=== PATIENT | female | born 1940 | race Caucasian/White ===

== ENCOUNTER 2016-10-25 17:45 | Emergency (ER) | payer MEDICARE ==
[2016-10-25 18:07] VITALS: BP 166/81
--- NOTE | 2016-10-25 18:36 | ERNOTE ---
ENT HPI Date of Service: 10/25/16 Presenting Symptoms: other Time Seen by Provider: 10/25/16 17:58 Source: patient, family Exam Limitations: no limitations - Immun/Allergies/Home Medications Immunizations: IMMUNIZATION HX Immunizations Up to Date Yes History of Influenza Vaccine Yes Hx Pneumococcal Vaccination Yes Allergies/Adverse Reactions: Allergies Allergy/AdvReac Type Severity Reaction Status Date / Time No Known Allergies Allergy Verified 10/25/16 18:07 Home Medications: HOME MEDICATIONS Cyanocobalamin [Vitamin B-12] 1,000 mcg PO DAILY 11/09/15 [Last Taken Unknown] Levothyroxine Sodium [Synthroid] 125 mcg PO DAILY 11/09/15 [Last Taken Unknown] Sertraline HCl [Zoloft] 200 mg PO HS 11/09/15 [Last Taken Unknown] Turmeric Root Extract [Turmeric] 500 mg PO DAILY 11/09/15 [Last Taken Unknown] Cholecalciferol [Vitamin D] 1,000 unit PO DAILY 07/23/16 [Last Taken Unknown] Donepezil HCl [Aricept] 5 mg PO HS 07/23/16 [Last Taken Unknown] Ketoconazole [Nizoral Cream] 1 appl TP DAILY 07/23/16 [Last Taken Unknown] Mometasone Furoate 1 applic TP DAILY 07/23/16 [Last Taken Unknown] Gabapentin 300 mg PO QID #120 capsule 10/25/16 [Last Taken Unknown] Pravastatin Sodium [Pravachol] 20 mg PO Q2D #15 tablet 10/25/16 [Last Taken Unknown] carBAMazepine [Tegretol] 0.5 tab PO QID #60 tablet 10/25/16 [Last Taken Unknown] - History of Present Illness Narrative: Chronic left trigeminal neuralgia. Worse this week. Excruciating today. Discussed at length. Also out of pravastatin. . Severity: Present: moderate, severe ENT Location: Present: other Prearrival Treatment: Present: over the counter meds, prescription meds Modifying Factors - Improves: Reports: other - medications Modifying Factors - Worsens: Reports: activity Associated Symptoms - ENT: Reports: denies symptoms Review of Systems - Review of Systems Constitutional: Present: no symptoms reported EYE: Present: no symptoms reported ENT: Present: no symptoms reported Respiratory: Present: no symptoms reported Cardiology: Present: no symptoms reported Gastrointestinal/Abdominal: Present: no symptoms reported Genitourinary: Present: no symptoms reported Musculoskeletal: Present: no symptoms reported Skin: Present: no symptoms reported Neurological: Present: See HPI Endocrine: Present: no symptoms reported Hematologic/Lymphatic: Present: no symptoms reported Psych: Present: no symptoms reported All Other Systems: All systems neg except as marked - Patient's Past Medical History Patient History - Medical: Arthritis, Chronic Pain, Hypothyroidism Patient History - Cancer: No Hx of Cancer Patient History - Surgical Procedures: Total Knee Replacement, T & A - Family History Father Family History - Medical: , Dementia Family History - Cardiac/Respiratory: Coronary Heart Disease Family History - Cancer: No Hx of cancer Mother Family History - Medical: , Alzheimer's Disease, Arthritis Family History - Cardiac/Respiratory: No pertinent hx Family History - Cancer: No Hx of cancer - Social History Living Situations: alone Does anyone smoke in the home?: No Smoking Status: Never smoker Have you smoked in the past 12 months: No Alcohol Use: none Drug Use: none Physical Exam - Physical Exam General Appearance: Present: wd/wn, alert, no apparent distress Eye Exam: Normal inspection: bilateral, PERRL: bilateral, EOMI: bilateral Ears, Nose, Throat: Present: normal ENT inspection, hearing grossly normal Neck: Present: normal inspection, nontender Respiratory: Present: no respiratory distress, normal breath sounds Cardiovascular/Chest: Present: regular rate, rhythm, no murmur Extremity Exam: Present: no edema Neurological Exam: Present: alert, oriented, normal mood/affect, no motor/ sensory deficits Skin Exam: Present: normal color, warm/dry Lymphatic Exam: Present: no adenopathy ED Progress - Vital Signs Patient's Vital Signs:: I have reviewed the patient's vital signs. Vital Signs: Vital Signs 10/25/16 18:03 Temperature 35.9 C L Pulse Rate 80 Respiratory 14 Rate Blood Pressure 166/81 O2 Sat by Pulse 98 Oximetry - Progress/Reassessment Chief Complaint: Dental Problem Departure Clinical Impression: Trigeminal neuralgia of left side of face Hyperlipidemia Qualifiers: Hyperlipidemia type: unspecified Qualified Code(s): E78.5 - Hyperlipidemia, unspecified - Departure Disposition: Home self-care Condition: Good Instructions: Trigeminal Neuralgia Additional Instructions: Follow up with your neurologist this week. Referrals: Kade Tristan MD [Primary Care Provider] - Prescriptions: Gabapentin 300 mg PO QID #120 capsule Pravastatin Sodium [Pravachol] 20 mg PO Q2D #15 tablet carBAMazepine [Tegretol] 0.5 tab PO QID #60 tablet
== END 2016-10-25 18:36 | disposition home or self-care (01) ==
LOC: ER 17:45
DX: E78.5 Hyperlipidemia, unspecified (principal); G50.0 Trigeminal neuralgia; Z96.659 Presence of unspecified artificial knee joint

== ENCOUNTER 2016-11-07 18:07 | Observation (INO) | payer MEDICARE ==
--- NOTE | 2016-11-07 18:28 | ERNOTE ---
Neuro HPI ER Record Date of Service: 11/07/16 Presenting Symptoms: weakness, confusion, difficulty walking, falling Time Seen by Provider: 11/07/16 18:13 Source: patient, family, EMS notes reviewed Immunizations: IMMUNIZATION HX Immunizations Up to Date Yes History of Influenza Vaccine Yes Hx Pneumococcal Vaccination Yes Allergies/Adverse Reactions: Allergies Allergy/AdvReac Type Severity Reaction Status Date / Time No Known Allergies Allergy Verified 10/25/16 18:07 Home Medications: HOME MEDICATIONS Amitriptyline HCl [Elavil] 10 mg PO HS 11/07/16 [Last Taken Unknown] Atorvastatin Calcium 40 mg PO HS 11/07/16 [Last Taken Unknown] Donepezil HCl [Aricept] 5 mg PO HS 11/07/16 [Last Taken Unknown] Gabapentin [Neurontin] 600 mg PO TID 11/07/16 [Last Taken Unknown] Meloxicam 7.5 mg PO DAILY 11/07/16 [Last Taken Unknown] Pravastatin Sodium [Pravachol] 20 mg PO Q48H 11/07/16 [Last Taken Unknown] Sertraline HCl [Zoloft] 200 mg PO HS 11/07/16 [Last Taken Unknown] carBAMazepine [Tegretol Xr] 200 mg PO TID 11/07/16 [Last Taken Unknown] clonazePAM [Klonopin] 0.5 mg PO BID 11/07/16 [Last Taken Unknown] - History of Present Illness Narrative: Patient presents with weakness that's been going on for the past 2-3 days. She' s been weak and lower legs she's been falling quite a bit yesterday and today. Although she denies any loss of consciousness or denies hitting her head. Denies any chest pain abdominal pain shortness of breath no nausea or vomiting or diarrhea. She has had a recent change in her medications her carbamazepine has increased, dose being doubled. And her gabapentin also has been increased. Date (Duration): 11/19/16 Onset: gradual onset - Character of Deficits New weakness: Present: RLE, LLE, general (diffuse) Additional Deficits: Present: decrease ability to walk, weakness, off balance Baseline Cognition: Present: alert but disoriented to time Baseline Gait: Present: walks w/o assistance Associated Symptoms: Reports: altered mental status, confused, trouble thinking. Denies: fever/chills, sweating, chest pain, neck/back pain, headache , fainting, seizure Review of Systems - Review of Systems Constitutional: Present: weakness, decreased activity level. Absent: fever, chills EYE: Absent: vision changes ENT: Absent: sore throat Respiratory: Absent: shortness of breath Cardiology: Absent: chest pain, palpitations, syncope Gastrointestinal/Abdominal: Absent: nausea, vomiting, diarrhea, abdominal pain Genitourinary: Absent: decreased urinary output Neurological: Present: dizziness/light-headedness, weakness. Absent: headache, numbness, tingling All Other Systems: All systems neg except as marked - Patient's Past Medical History Patient History - Medical: Arthritis, Chronic Pain, Hypothyroidism Patient History - Cancer: No Hx of Cancer Patient History - Surgical Procedures: Total Knee Replacement, T & A - Family History Father Family History - Medical: , Dementia Family History - Cardiac/Respiratory: Coronary Heart Disease Family History - Cancer: No Hx of cancer Mother Family History - Medical: , Alzheimer's Disease, Arthritis Family History - Cardiac/Respiratory: No pertinent hx Family History - Cancer: No Hx of cancer - Social History Living Situations: alone Does anyone smoke in the home?: No Smoking Status: Never smoker Alcohol Use: none Drug Use: none Physical Exam - Physical Exam General Appearance: Present: wd/wn, alert, no apparent distress Eye Exam: Normal inspection: bilateral, PERRL: bilateral, EOMI: bilateral Ears, Nose, Throat: Present: normal ENT inspection, hearing grossly normal, normal pharynx Neck: Present: normal inspection, nontender Respiratory: Present: no respiratory distress, normal breath sounds, no accessory muscle use, chest nontender, lungs clear Cardiovascular/Chest: Present: regular rate, rhythm, no murmur, normal peripheral pulses Gastrointestinal/Abdominal: Present: normal bowel sounds, nontender, nondistended, soft, no organomegaly Back Exam: Present: normal inspection, normal range of motion, no CVA tenderness , no vertebral tenderness Extremity Exam: Present: normal inspection, non-tender, no edema, normal range of motion Neurological Exam: Present: alert, normal mood/affect, no motor/sensory deficits , disoriented to time Skin Exam: Present: normal color, warm/dry Lymphatic Exam: Present: no adenopathy ED Progress - Results and Orders Patient's Lab Results:: I have reviewed the patient's lab results. - Vital Signs Patient's Vital Signs:: I have reviewed the patient's vital signs. Vital Signs: Vital Signs 11/07/16 11/07/16 18:10 18:15 Temperature 36.4 C L Pulse Rate 67 68 Respiratory 18 Rate Blood Pressure 154/62 O2 Sat by Pulse 97 Oximetry - EKG EKG: NSR, RBBB, nonspecific ST T wave changes EKG read: Interp. by me EKG Comments: EKG shows an incomplete right bundle branch block heart rate 64 sinus rhythm. - Progress/Reassessment Chief Complaint: Altered Mental Status Progress:: Unchanged - be admitted to the hospitalist under care of Joyce Anderson, for observation. - Transfer of Care Expected Disposition: Admit - still quite weak upon ambulating I will go ahead and admit her to the hospital at least for observation. Family also agreed to this Departure Clinical Impression: Generalized weakness, Carbamazepine toxicity Lower extremity weakness Qualifiers: Laterality: bilateral Qualified Code(s): R29.898 - Other symptoms and signs involving the musculoskeletal system - Departure Disposition: [facility] Condition: Good
[2016-11-07] MEDS ORDERED: NORMAL SALINE 1,000 ML IV ONE (18:29)
[2016-11-07 19:05] LABS: Hematocrit 39.2 % (37.0-47.0); Hemoglobin 13.1 gm/dL (12.5-16.0); Mean Cell Volume 96.6 fl (78-100); Mean Corpuscular Hemoglobin 32.3 pg (27-31); Mean Corpuscular Hgb Conc 33.4 g/dl (32-36); Mean Platelet Volume 9.2 fl (6.0-9.5); Neutrophil % 55.7 % (42-75.0); Platelet Count 213 K/mm3 (150-450); Red Blood Count 4.06 M/mm3 (4.2-5.4); Red Cell Distribution Width 12.8 % (11.5-14.0); White Blood Count 5.4 K/mm3 (4.0-10.5)
[2016-11-07 19:24] LABS: ALT 24 U/L (19-67); AST 17 U/L (0-48); Albumin * 3.5 gm/dl (3.4-5.0); Alkaline Phosphatase * 95 U/L (50-170); Anion Gap 9.5 mmol/L (6.8-13.8); BUN/Creatinine Ratio 14.1 (9.0-21.6); Bilirubin, Total 0.3 mg/dL (0.0-1.1); Blood Urea Nitrogen 14 mg/dL (3-23); Ca. Corrected For Albumin 9.2 mg/dL (8.4-10.2); Calcium * 9.1 mg/dL (7.9-10.9); Carbamazepine 14.9 mcg/mL (4.0-12.0); Carbon Dioxide 31.4 mmol/L (24-32.6); Chloride 105 mmol/L (97-106); Glucose * 150 mg/dL (70-110); Potassium 3.9 mmol/L (3.4-4.6); Sodium 142 mmol/L (132-142); Total Protein 7.1 gm/dL (6.2-8.2); Troponin I Less than 0.017 ng/ml (0.00-0.10)
[2016-11-07 19:26] LABS: Prothrombin Time (Patient) 10.5 Seconds (9.4-11.4)
[2016-11-07 19:27] LABS: INR 1.01 INR (0.90-1.10); Partial Thrombolplastin Time 26.1 Seconds (24-32)
[2016-11-07 20:05] LABS: Urine Appearance Clear; Urine Bacteria None Seen; Urine Bilirubin Negative (NEGATIVE); Urine Blood Negative /ul (NEGATIVE); Urine Color Yellow; Urine Ketone Negative (NEGATIVE); Urine Nitrite Negative (NEGATIVE); Urine Protein Negative (NEGATIVE); Urine RBC None Seen /hpf (0-5); Urine Specific Gravity 1.015 SP.GR. (1.005-1.010); Urine Urobilinogen Normal (NORMAL); Urine WBC None Seen /hpf (0-5); Urine pH 6.5 pH (5.0-7.0)
--- NOTE | 2016-11-07 22:31 | HP ---
Chief Complaint - Chief Complaint Date of Service: 11/07/16 Time of Service: 21:49 Chief Complaint: "Weakness, Confusion,". Source of HPI- Pt; unreliable, Pt's daughters Holly & Janel, ER provider report. History of Present Illness: Ms. Ohara is a 76yr-old [place] pt of Dr. Kade Tristan with a PMH of: DM II, HLD , Psoriasis, Generalized Muscle Weakness & Trigeminal Neuralgia. Pt is not a reliable historian and information is mostly obtained from her two daughter at bedside. They report that for the last 2-3 days, they have noticed that the pt has been appearing weaker. She fell 2 days ago but they deny any injury to the head or any extremity, and no medical care was sought. Today, they noticed that she was even more weaker and appeared to be confused, and the symptoms forced them to bring her to the [facility] ER. In speaking to the pt, she states that her legs just felt weaker, but denies denies feeling dizzy or light headed. The family denies noting any slurry speech, facial drooping or one sided weakness. During the evaluation at the ED, the CXR, UA & Head CT obtained did not have any acute findings. The laboratory studies were unremarkable. However, the family & pt disclosed that she sought medical care in [facility] for intolerable pain from her Trigeminal neuralgia on 11/04/16. They state that her Gapapentin dose was increased from 300mg t.i.d to 600mg t.i.d, and the carbamazepine was increased from 100mg t.i.d to 200mg t.i.d. The Carbamazepine level obtained in ER was mildly elevated at 14.7. The pt will be admitted under observation status for AMS & remote telemetry monitoring. - Patient's Past Medical History Patient History - Medical: Arthritis, Chronic Pain, Diabetes Type 2, Dementia, Hypothyroidism - Trigeminal Neuralgia,Psoriasis, , Other Patient History - Cardiac/Respiratory: Hyperlipidemia Patient History - Cancer: No Hx of Cancer Patient History - Surgical Procedures: Cataracts, Hysterectomy, Total Knee Replacement - Both knees, 2000, Adenoidectomy,, T & A - Family History Father Family History - Medical: , Dementia Family History - Cardiac/Respiratory: Coronary Heart Disease Family History - Cancer: No Hx of cancer Mother Family History - Medical: , Alzheimer's Disease, Arthritis Family History - Cardiac/Respiratory: No pertinent hx Family History - Cancer: No Hx of cancer - Social History Living Situations: alone Does anyone smoke in the home?: No Smoking Status: Never smoker Have you smoked in the past 12 months: No Do you dip or chew tobacco: No Patient requests Smoking Cessation Consult: No Initiate information on Smoking Cessation: No Alcohol Use: none Drug Use: none Review Of Systems (GEN) - Review of Systems Generalized/Overall Review: Present: Weakness, Fatigue. Absent: Chills, Fever EENTM: Absent: Eye Pain, Blurred Vision, Throat Pain, Throat Swelling Respiratory: Absent: Cough, Shortness of Breath Cardiac: Absent: Chest Pain, Edema, Palpitations Abdominal: Absent: Nausea, Vomiting, Abdominal Pain, Constipation, Diarrhea, Melena Genitourinary: Absent: Burning, Itching, Urgency, Frequency, Hematuria Musculoskeletal: Present: Joint Pain - Lower Back, Other Neurological: Present: Headache, Anxiety, Depressed Skin: Present: Dryness, Lesions, Lumps Endocrine: Present: Intolerance to Cold. Absent: Intolerance to Heat, Increased Thirst Misc: All systems neg except as marked Allergies/Adverse Reactions: Allergies Allergy/AdvReac Type Severity Reaction Status Date / Time No Known Allergies Allergy Verified 10/25/16 18:07 Home Medications: HOME MEDICATIONS Amitriptyline HCl [Elavil] 10 mg PO HS 11/07/16 [Last Taken Unknown] Atorvastatin Calcium 40 mg PO HS 11/07/16 [Last Taken Unknown] Donepezil HCl [Aricept] 5 mg PO HS 11/07/16 [Last Taken Unknown] Gabapentin [Neurontin] 600 mg PO TID 11/07/16 [Last Taken Unknown] Meloxicam 7.5 mg PO DAILY 11/07/16 [Last Taken Unknown] Pravastatin Sodium [Pravachol] 20 mg PO Q48H 11/07/16 [Last Taken Unknown] Sertraline HCl [Zoloft] 200 mg PO HS 11/07/16 [Last Taken Unknown] carBAMazepine [Tegretol Xr] 200 mg PO TID 11/07/16 [Last Taken Unknown] clonazePAM [Klonopin] 0.5 mg PO BID 11/07/16 [Last Taken Unknown] Exam - Exam Vital Signs: Vital Signs - Last Taken Temp 36.6 C 11/07/16 20:43 Pulse 63 11/07/16 20:43 Resp 16 11/07/16 20:43 BP 159/72 11/07/16 20:43 Pulse Ox 95 11/07/16 20:43 Constitutional: Present: Alert, Oriented x3, No distress, Elderly ENT Exam: Present: normal ENT inspection, hearing grossly normal. Absent: nasal congestion, nasal drainage Eye Exam: bilateral eye: normal inspection, PERRL Neck: Present: full range of motion, normal inspection Back Exam: Present: normal inspection, no CVA tenderness Breasts: Present: Exam deferred Respiratory: Present: lungs clear, no accessory muscle use, No wheezing Cardiovascular/Chest: Present: normal peripheral pulses, regular rate, rhythm, no edema, no murmur Peripheral Pulses: carotid (R): 2+, carotid (L): 2+, dorsalis-pedis (R): 2+, dorsalis-pedis (L): 2+ Abdomen: Present: Normal bowel sounds, soft, nontender /Rectal: Present: Exam deferred Extremity: Present: normal inspection, no pedal edema. Absent: lower extremity edema Skin Exam: Present: warm/dry, no cyanosis Lymphatic: Present: no adenopathy Neurologic: Present: no motor/sensory deficits, alert, oriented x 3, abnormal gait, other - Muscle Strength on BUE 5/5 & 5/5 on /BLE. Absent: facial droop , dizzy/light-headedness Appearance: Present: appropriate appearance, appropriate insight, no memory impairment Eye contact: Present: cooperative, good eye contact, normal speech Thoughts: Present: normal thought pattern, no apparent hallucination Diagnostic Studies: Laboratory Results WBC 5.4 K/mm3 (4.0-10.5) 11/07/16 18:59 RBC 4.06 M/mm3 (4.2-5.4) L 11/07/16 18:59 Hgb 13.1 gm/dL (12.5-16.0) 11/07/16 18:59 Hct 39.2 % (37.0-47.0) 11/07/16 18:59 MCV 96.6 fl (78-100) 11/07/16 18:59 MCH 32.3 pg (27-31) H 11/07/16 18:59 MCHC 33.4 g/dl (32-36) 11/07/16 18:59 RDW 12.8 % (11.5-14.0) 11/07/16 18:59 Plt Count 213 K/mm3 (150-450) 11/07/16 18:59 MPV 9.2 fl (6.0-9.5) 11/07/16 18:59 Immature Gran % (Auto) 0.40 % (0.001-0.429) 11/07/16 18:59 Immature Gran # (Auto) 0.02 K/mm3 (0.000-0.0310) 11/07/16 18:59 Neutrophils % 55.7 % (42-75.0) 11/07/16 18:59 Lymphocytes % 32.3 % (20-51) 11/07/16 18:59 Monocytes % 6.0 % (0.0-9) 11/07/16 18:59 Eosinophils % 5.2 % (0.0-3.0) H 11/07/16 18:59 Basophils % 0.4 % (0.0-1.0) 11/07/16 18:59 Nucleated RBC % 0.0 k/mm3 (0-1) 11/07/16 18:59 Neutrophils # 3.0 K/mm3 (1.3-6.0) 11/07/16 18:59 Lymphocytes # 1.7 k/mm3 (1.5-3.5) 11/07/16 18:59 Monocytes # 0.3 k/mm3 (0.0-1.0) 11/07/16 18:59 Eosinophils # 0.3 k/mm3 (0.0-0.7) 11/07/16 18:59 Absolute Basophils 0.0 k/mm3 (0.0-0.1) 11/07/16 18:59 PT 10.5 Seconds (9.4-11.4) 11/07/16 18:59 INR (Anticoag Therapy) 1.01 INR (0.90-1.10) 11/07/16 18:59 PTT (Banks) 26.1 Seconds (24-32) 11/07/16 18:59 Sodium 142 mmol/L (132-142) 11/07/16 18:59 Plasma Sodium 143 mmol/L (130-142) H 11/07/16 18:59 Potassium 3.9 mmol/L (3.4-4.6) 11/07/16 18:59 Chloride 105 mmol/L (97-106) 11/07/16 18:59 Carbon Dioxide 31.4 mmol/L (24-32.6) 11/07/16 18:59 Anion Gap 9.5 mmol/L (6.8-13.8) 11/07/16 18:59 BUN 14 mg/dL (3-23) 11/07/16 18:59 Creatinine 0.99 mg/dL (0.4-1.4) 11/07/16 18:59 Est GFR (Non-Af Amer) 58 mL/min (60-130) L 11/07/16 18:59 BUN/Creatinine Ratio 14.1 (9.0-21.6) 11/07/16 18:59 Random Glucose 150 mg/dL (70-110) H 11/07/16 18:59 Calcium 9.1 mg/dL (7.9-10.9) 11/07/16 18:59 Calcium Adj for Albumin 9.2 mg/dL (8.4-10.2) 11/07/16 18:59 Total Bilirubin 0.3 mg/dL (0.0-1.1) 11/07/16 18:59 AST 17 U/L (0-48) 11/07/16 18:59 ALT 24 U/L (19-67) 11/07/16 18:59 Alkaline Phosphatase 95 U/L (50-170) 11/07/16 18:59 Troponin I Less than 0.017 ng/ml (0.00-0.10) 11/07/16 18:59 Total Protein 7.1 gm/dL (6.2-8.2) 11/07/16 18:59 Albumin 3.5 gm/dl (3.4-5.0) 11/07/16 18:59 Urine Color Yellow 11/07/16 19:30 Urine Appearance Clear 11/07/16 19:30 Urine pH 6.5 pH (5.0-7.0) 11/07/16 19:30 Ur Specific [place] 1.015 SP.GR. (1.005-1.010) 11/07/16 19:30 Urine Protein Negative mg/dL (NEGATIVE) 11/07/16 19:30 Urine Glucose (UA) Negative mg/dL (NEGATIVE) 11/07/16 19:30 Urine Ketones Negative mg/dL (NEGATIVE) 11/07/16 19:30 Urine Blood Negative /ul (NEGATIVE) 11/07/16 19:30 Urine Nitrate Negative (NEGATIVE) 11/07/16 19:30 Urine Bilirubin Negative mg/dl (NEGATIVE) 11/07/16 19:30 Urine Urobilinogen Normal EU/dl (NORMAL) 11/07/16 19:30 Ur Leukocyte Esterase Negative /ul (NEGATIVE) 11/07/16 19:30 Urine RBC None seen /hpf (0-5) 11/07/16 19:30 Urine WBC None seen /hpf (0-5) 11/07/16 19:30 Ur Epithelial Cells None seen /hpf (0-5) 11/07/16 19:30 Urine Bacteria None seen (NONE) 11/07/16 19:30 Urine Culture Comments No culture indicated 11/07/16 19:30 Carbamazepine 14.9 mcg/mL (4.0-12.0) H 11/07/16 18:59 Assessment/Plan - Assessment/Plan (1) Altered mental status Assessment: Ms. Ohara family reports pts having abnormal thought content, weakness & falls more worsened within the last 2-3 days. She is otherwise usually able to care for herself independently and able to operate the motor vehicle. They are unsure if she takes medication correctly as dementia was noted during one of the doctor's visit. Today in the ER, most of the medical work-up involving; CXR , UA & Hematology/electrolyte Labs did not have any abnormal findings to suggest systemic illness. No hypoxia or hypoglycemia noted. The Head CT did not have any findings of ischemic or hemorrhagic stroke. The carbamazepine level was slightly elevated at 14.9 which is not significant enough to cause neurological symptoms. However,it must be noted that the home dose was recently increased. Her gabapentin dose was recently increased too and the medication has been known to have neuromusculo/skeletal effects such as weakness , & dizziness. Given the negative findings on test results, I suspect that the AMS is drug related. Problem: Acute (2) Carbamazepine toxicity Assessment: Consider Adjusting the doses. Will hold the medication for now due to AMS. Problem: Acute (3) Generalized weakness Assessment: Nursing reports pt requiring a maximum assist of two to ambulate. Will involve PT evaluation. Problem: Acute (4) Trigeminal neuralgia Assessment: Hold Gabapentin & Carbamazepine for now- will let the attending decide on the doses. Problem: Chronic (5) Hyperlipidemia Assessment: Stable. Problem: Chronic (6) Diabetes mellitus Assessment: Stable Problem: Chronic
[2016-11-07] MEDS ORDERED: SIMVASTATIN 10 MG TABLET PO SCH (23:00)
[2016-11-08] MEDS: MELOXICAM 7.5 MG TABLET PO SCH (09:50)
--- NOTE | 2016-11-08 09:50 | PN ---
[id number] Narrative: Her last medication were before 4 pm yesterday. Subsequent ones were put on hold.She does says that when she went to [facility] it was the left side of his facethat bothering and along her upper teeth. She is still feeling weak and has difficulty of ambulating. Objective - Review of Systems Generalized/Overall Review: Reports: Weakness. Denies: Chills, Fever EENTM: Reports: Other - pain in upper lips and teeth area Respiratory: Denies: Cough, Shortness of Breath Cardiac: Denies: Chest Pain, Edema, Palpitations Abdominal: Denies: Nausea, Vomiting Genitourinary Symptoms: Denies: Urgency, Frequency Musculoskeletal Complaints: Reports: Joint Pain - Vitals Vitals: Last Vital Signs Temp 36.7 C 11/08/16 08:19 Pulse 66 11/08/16 08:19 Resp 18 11/08/16 08:19 BP 147/60 11/08/16 08:19 Pulse Ox 96 11/08/16 08:19 - Exam Constitutional: Present: Alert, Oriented x3, Cooperative ENT Exam: Present: other - positive tteth feelings, positive tendeerness when pressured Neck: Present: supple Breasts: Present: Exam deferred Respiratory: Present: decreased breath sounds, No rales, No wheezing Cardiovascular/Chest: Present: regular rate, rhythm, no JVD, no murmur Abdomen: Present: Normal bowel sounds, soft, nontender, nondistended Extremity: Present: no calf tenderness, pedal edema Neurologic: Present: hearing aid repair technician II-XII nml as tested, oriented x 3 Assessment/Plan - Problems/Diagnosis (1) Altered mental status Problem: Resolved Qualifiers: Altered mental status type: disorientation Qualified Code(s): R41.0 - Disorientation, unspecified Narrative: due to recent increase in medications. will restart her meds on her previous doses one at a time (2) Generalized weakness Problem: Acute Narrative: could be drug related or deconditioning. no PT for evaluation . for discharge tomorrow following PT eval and treatment. (3) Trigeminal neuralgia Problem: Chronic (4) Mild cognitive impairment Problem: Resolved (5) Diabetes mellitus Problem: Chronic Qualifiers: Diabetes mellitus complication status: with kidney complications (6) Tooth ache Problem: Acute Narrative: will need dental appointment on discharge. (7) Carbamazepine toxicity Problem: Acute Qualifiers: Encounter type: subsequent encounter Narrative: on hold
[2016-11-08] MEDS: GABAPENTIN 300 MG CAPSULE PO SCH ×2 (13:08→18:10)
[2016-11-08] MEDS ORDERED: SERTRALINE HCL 100 MG TABLET PO SCH (21:00)
[2016-11-08] MEDS ORDERED: DONEPEZIL HCL 10 MG TABLET PO SCH (21:00)
[2016-11-08] MEDS ORDERED: AMITRIPTYLINE HCL 10 MG TABLET PO SCH (21:00)
[2016-11-08] MEDS ORDERED: ATORVASTATIN CALCIUM 40 MG TABLET PO SCH (21:00)
[2016-11-09] MEDS: GABAPENTIN 300 MG CAPSULE PO SCH ×2 (01:13→10:36)
[2016-11-09] MEDS: MELOXICAM 7.5 MG TABLET PO SCH (09:56)
--- NOTE | 2016-11-09 10:46 | DS ---
(1) Altered mental status Problem: Resolved Qualifiers: Altered mental status type: disorientation Qualified Code(s): R41.0 - Disorientation, unspecified (2) Carbamazepine toxicity Problem: Acute Qualifiers: Encounter type: subsequent encounter (3) Mild cognitive impairment Problem: Resolved (4) Diabetes mellitus Problem: Chronic Qualifiers: Diabetes mellitus complication status: with kidney complications (5) Trigeminal neuralgia Problem: Chronic Description of Stay: 76yr-old [place] pt of Dr. Kade Tristan with a PMH of: DM II, HLD, Psoriasis, Generalized Muscle Weakness, dementia and Trigeminal Neuralgia. On adm pt info was obtained from daughters at the bedside. They report that for the last 2-3 days, they have noticed that the pt has been appearing weaker. She fell 2 days prior to adm and deny any injury to the head or any extremity, and no medical care was sought.On adm they noticed that she was even more weaker and appeared to be more confused from her usual baseline of confusion( pt with hx dementia) hence her increased confused state forced them to bring her to the [facility] ER. In ER CXR, UA & Head CT obtained did not have any acute findings. The laboratory studies were unremarkable. However, the family & pt disclosed that she sought medical care in [facility] for intolerable pain from her Trigeminal neuralgia on 11/04/16. They state that her Gabapentin dose was increased from 300mg t.i.d to 600mg t.i.d, and the carbamazepine was increased from 100mg t.i.d to 200mg t.i.d. The Carbamazepine level obtained in ER was mildly elevated at 14.7---->5.7 WNL today. During this adm per daughters pt is currently at her baseline AOX3 and doing much better than she did on adm. Pt stated her pain is controlled and just mild discomfort to her jaw. Pt and family stated she typically use Advil 1-4 times during the week when her pain get worst. Pt family stated she was confused overnight despite getting her regular dose of medications carbamazepine and Gabapentin. Daughters stated pt have history of dementia, her confusion overnight possible attributed to delirium that resolved before morning. pt stated she have follow up appt with Dr. Richard November 11, 2016, she will continue on her home dose of medications before the dose changes were made on last appt 11/04/16. She is refusing to take Elavil and and will see Dr Phillips in 3-7 days. Family/ pt requesting Copy of this adm record to be faxed to Dr. Richrad before her next appt date. Procedures Performed: none Results and Findings: Laboratory Tests 11/07/16 18:59 Carbamazepine 14.9 H Discharge Disposition: Home self care Disposition: Home self-care Condition: Stable Discharge Activity: Activity as tolerated Discharge Diet: Consistent carbs Problem Oriented Discharge Instructions to Patient/Family: Confusion Additional Patient Instructions (free text): [facility] new. Please fax orders, H&P, D/C summary, face to face upon discharge. Follow up with Dr Tristan 3-7 days call for appt. On October at 10:[address] Richard October as schedule Please fax this adm records to Dr Richard office. Complete Home Medications List: Complete Home Medication List: Atorvastatin Calcium 40 mg PO HS 11/07/16 Donepezil HCl [Aricept] 5 mg PO HS 11/07/16 Meloxicam 7.5 mg PO DAILY 11/07/16 Sertraline HCl [Zoloft] 200 mg PO HS 11/07/16 clonazePAM [Klonopin] 0.5 mg PO BID 11/07/16 Gabapentin [Neurontin] 300 mg PO Q8H capsule 11/09/16 carBAMazepine [Tegretol Chewable Tablets] 100 mg PO TID tab.chew 11/09/16
[2016-11-09 11:17] VITALS: BP 155/72
[2016-11-09] MEDS ORDERED: carBAMazepine 100 MG TAB.CHEW PO SCH (13:00)
== END 2016-11-09 13:37 | disposition home health service (06) ==
LOC: ER 18:07 → MS 20:06
PROVIDERS: ADMIT Nurse Practitioner; ATTEND Internal Medicine
PROC: 0T9B70Z Drainage of Bladder with Drainage Device, Via Natural or Artificial Opening (ICD-10-PCS; principal; 2016-11-07)
DX: T42.1X1A Poisoning by iminostilbenes, accidental (unintentional), initial encounter (principal); E11.9 Type 2 diabetes mellitus without complications; G50.0 Trigeminal neuralgia; M19.90 Unspecified osteoarthritis, unspecified site; G89.29 Other chronic pain; F03.90 Unspecified dementia, unspecified severity, without behavioral disturbance, psychotic disturbance, mood disturbance, and anxiety; E03.9 Hypothyroidism, unspecified; E78.5 Hyperlipidemia, unspecified; Z90.710 Acquired absence of both cervix and uterus; Z96.653 Presence of artificial knee joint, bilateral; L40.9 Psoriasis, unspecified; Z82.49 Family history of ischemic heart disease and other diseases of the circulatory system; Z82.61 Family history of arthritis; Z84.89 Family history of other specified conditions
CPT/HCPCS: 36415; 51701; 70450; 71010; 80053; 80156; 80299; 81001; 84484; 85025; 85610; 85730; 93005; 97161; 99284; G0378; G8978; G8979; G8980

== ENCOUNTER 2016-11-14 05:46 | Emergency (ER) | payer MEDICARE ==
[2016-11-14] MEDS ORDERED: HYDROmorphone HCL 1 MG/ML DISP.SYRIN ONE (07:04)
[2016-11-14] MEDS ORDERED: METHYLPREDNISOLONE SOD SUCC/PF 40 MG/ML VIAL IM ONE (07:07)
[2016-11-14] MEDS ORDERED: HYDROmorphone HCL 1 MG/ML DISP.SYRIN IM ONE (07:07)
[2016-11-14] MEDS ORDERED: DIAZEPAM 5 MG TABLET PO ONE (07:08)
--- NOTE | 2016-11-14 07:09 | ERNOTE ---
Back Pain ER HPI Date of Service: 11/14/16 - PCP Dr. Tristan Presenting Symptoms: hx chronic back pain, other - severe intractable back pain despite oral pain medications Time Seen by Provider: 11/14/16 06:50 Source: family, EMS, EMS notes reviewed Exam Limitations: clinical condition, dementia - mild and the severity of her pain. Immunizations: IMMUNIZATION HX Immunizations Up to Date Yes History of Influenza Vaccine Yes Hx Pneumococcal Vaccination Yes Allergies/Adverse Reactions: Allergies gabapentin Adverse Reaction (Intermediate, Verified 11/14/16 10:05) Other mental status changes in large doses Home Medications: HOME MEDICATIONS Atorvastatin Calcium 40 mg PO HS 11/07/16 [Last Taken Unknown] Donepezil HCl [Aricept] 5 mg PO HS 11/07/16 [Last Taken Unknown] Meloxicam 7.5 mg PO DAILY 11/07/16 [Last Taken Unknown] Sertraline HCl [Zoloft] 200 mg PO HS 11/07/16 [Last Taken Unknown] clonazePAM [Klonopin] 0.5 mg PO BID 11/07/16 [Last Taken Unknown] Gabapentin [Neurontin] 300 mg PO Q8H capsule 11/09/16 [Last Taken Unknown] carBAMazepine [Tegretol Chewable Tablets] 100 mg PO TID tab.chew 11/09/16 [ Last Taken Unknown] Narrative: Patient is a 76 yo female with worsening low back pain for years. The patient has been seeing Dr. Crook for evaluation of the back pain and just last week she had xrays of her lumbar spine. Per her understanding she may need surgery to her low back. Patient has pmhx of diabetes, and Date (Duration): 11/14/16 Timing: Reports: constant, other - constant x 4 hours, unable to move, pain relief only with stadol Quality/Severity: Reports: severe Location of pain: Reports: lower back, radiating to lf thigh/leg Activities at Onset: Reports: none, activity - v Recent Injury?: Reports: possibly - no descreet injury per seee.= Possible Precipitating Factor: Reports: none. Denies: turning/bending, fall/ near fall, trauma Modifying Factors - (Improves): Reports: movement flexion Modifying Factors - (Worsens): Reports: other - nothing is helping for pain Associated Symptoms: Reports: problems urinating - pateint has painfc, difficulty walking, numbess/weakness in legs. Denies: fever/chills, sweating, constipation/incontinence, nausea/vomiting Prior Treament: Reports: treated by physician - Dr. Crook. Review of Systems - Review of Systems Constitutional: Present: no symptoms reported, weakness, malaise. Absent: weight loss EYE: Present: no symptoms reported ENT: Present: no symptoms reported Respiratory: Present: no symptoms reported Cardiology: Present: no symptoms reported Gastrointestinal/Abdominal: Present: no symptoms reported Genitourinary: Present: no symptoms reported, hematuria Musculoskeletal: Present: back pain, muscle stiffness, joint pain Skin: Present: no symptoms reported Neurological: Present: no symptoms reported Endocrine: Present: no symptoms reported, intolerance to cold. Absent: increased thirst, increased urine Hematologic/Lymphatic: Present: no symptoms reported Psych: Present: no symptoms reported, anxiety - Patient's Past Medical History Patient History - Medical: Arthritis, Chronic Pain, Diabetes Type 2, Dementia, Hypothyroidism, Other Patient History - Cardiac/Respiratory: Hyperlipidemia Patient History - Cancer: No Hx of Cancer Patient History - Surgical Procedures: Cataracts, Hysterectomy, Total Knee Replacement, T & A - Family History Father Family History - Medical: , Dementia Family History - Cardiac/Respiratory: Coronary Heart Disease Mother Family History - Medical: , Alzheimer's Disease, Arthritis Family History - Cardiac/Respiratory: No pertinent hx Family History - Cancer: No pertinent family hx - Social History Living Situations: alone Does anyone smoke in the home?: No Smoking Status: Never smoker Alcohol Use: none Drug Use: none Physical Exam - Physical Exam General Appearance: Present: mild distress, moderate distress, severe distress - prior to discharge. Eye Exam: Normal inspection: bilateral, PERRL: bilateral, EOMI: bilateral Ears, Nose, Throat: Present: normal ENT inspection, hearing grossly normal Neck: Present: normal inspection, nontender, full range of motion Respiratory: Present: no respiratory distress, normal breath sounds, lungs clear Peripheral Pulses: N=norm/S=strong/W=weak/B=bound/A=absent: Carotid (R): Normal , Carotid (L): Normal, Radial (R): Normal, Radial (L): Normal Gastrointestinal/Abdominal: Present: normal bowel sounds, nontender, soft, no organomegaly Rectal Exam: Present: deferred Back Exam: Present: decreased range of motion, muscle spasm, other - Positive leg raising exam on right exacerbates pain on left Extremity Exam: Present: normal inspection, non-tender, decreased range of motion - left leg unable to lift, splints due to pain but passively also weakness is noted. . Absent: calf tenderness, joint swelling, extremity edema Neurological Exam: Present: alert, oriented, normal mood/affect, no motor/ sensory deficits, general manager food II-XII nml as tested, motor weakness - left lower extremity, DTR: N=norm/NB=norm/brisk/A=abs/DD=dull/dimin/HC=hyperactive: Knee (R): Absent - total knee replacement , Knee (L): Absent - total knee replacement , Ankle (R) : Absent, Ankle (L): Absent Skin Exam: Present: normal color, warm/dry Lymphatic Exam: Present: no adenopathy Pelvic Exam: Present: deferred ED Progress - Date and Time Seen: Date and Time: 11/14/16 0900 MRI requested for evaluation of possible cauda equina, patient unable to ambulate. - Results and Orders Patient's Lab Results:: I have reviewed the patient's lab results. - Vital Signs Patient's Vital Signs:: I have reviewed the patient's vital signs. Vital Signs: Vital Signs 11/14/16 05:55 Pulse Rate 59 L Respiratory 18 Rate Blood Pressure 167/71 O2 Sat by Pulse 98 Oximetry - X-Ray X-Ray #1 X-Ray: MRI of Lumbare spine will need to be interpreted by Radiologist. - Progress/Reassessment Chief Complaint: Back Pain Progress:: Improved - only with sedating medications. - Transfer of Care Physician Sign Out: Vicente Escalante - awaiting MRI RESULTS. Brief History: Attempted to call Dr. Wheeler regarding admission awaiting MRI => she declined until results of MRI of lumbar spine are known. She does not do pain management. Pending Results: CT/MRI results - MRI completed at 10:00 am Plan - Plan Plan: patient tolerated procedure of MRI well. Departure Clinical Impression: Lumbar back pain with radiculopathy affecting left lower extremity, Weakness of left lower extremity, Paresthesia of lower limb, Weakness of both lower extremities - Departure Disposition: [facility] Condition: Fair
[2016-11-14] MEDS ORDERED: METHYLPREDNISOLONE SOD SUCC/PF 40 MG/ML VIAL ONE (07:13)
[2016-11-14] MEDS ORDERED: DIAZEPAM 5 MG TABLET ONE (07:13)
[2016-11-14 07:19] VITALS: BP 169/79
[2016-11-14] MEDS ORDERED: GABAPENTIN 100 MG CAPSULE PO ONE (09:25)
[2016-11-14] MEDS ORDERED: KETOROLAC TROMETHAMINE 60 MG/2 ML VIAL IM ONE ×2 (09:25→09:56)
[2016-11-14] MEDS ORDERED: NORTRIPTYLINE HCL 10 MG CAPSULE PO STA (10:11)
[2016-11-14] MEDS ORDERED: HYDROcodone/ACETAMINOPHEN 1 EACH TABLET PO ONE (10:46)
[2016-11-14] MEDS ORDERED: HYDROcodone/ACETAMINOPHEN 1 EACH TABLET ONE (11:07)
== END 2016-11-14 13:32 | disposition home or self-care (01) ==
LOC: ER 05:46
DX: M48.06 Spinal stenosis, lumbar region (principal); M54.5 Low back pain; M62.81 Muscle weakness (generalized); R26.2 Difficulty in walking, not elsewhere classified; M79.606 Pain in leg, unspecified